=== PATIENT | female | born 1975 | race Caucasian/White ===

== ENCOUNTER 2016-12-31 08:12 | Emergency (ER) | payer OTHER ==
[~2016-12-31] VITALS: Ht 167.6 cm; Wt 92.3 kg
[~2016-12-31 08:12] MED LIST: AMOXICILLIN 8751 TAB PO; PRINZIDE 12.5 M1 TAB PO
[2016-12-31 08:13] VITALS: TEMP 97.7
[2016-12-31] MEDS ORDERED: PREDNISONE20 MG PO (08:45)
[2016-12-31 09:45] VITALS: BP 145/96; PULSE 93
== END 2016-12-31 09:46 | disposition home or self-care (01) ==
LOC: COL.ER 08:12
DX: L23.6 Allergic contact dermatitis due to food in contact with the skin (principal); I10 Essential (primary) hypertension
CPT/HCPCS: J7512

== ENCOUNTER 2017-01-02 13:45 | Emergency (ER) | payer OTHER ==
[~2017-01-02] VITALS: Ht 167.6 cm; Wt 92.7 kg
[~2017-01-02 13:45] MED LIST changes: +PREDNISONE20 MG PO
[2017-01-02 13:55] VITALS: TEMP 98.8
[2017-01-02 15:46] LABS: PH 5 (5-8); URINE APPEARANCE Cloudy; URINE BACTERIA Many /hpf; URINE BILIRUBIN Negative (NEGATIVE); URINE BLOOD Negative (NEGATIVE); URINE COLOR Yellow; URINE GLUCOSE Negative (NEGATIVE); URINE KETONE Negative (NEGATIVE); URINE UROBILINOGEN Negative (NEGATIVE)
[2017-01-02] MEDS ORDERED: EPIPEN 2-PAK1 MG/ML IM (16:14)
[2017-01-02] MEDS ORDERED: PREDNISONE10 MG PO (16:14)
[2017-01-02 16:26] VITALS: BP 128/86; PULSE 77
[2017-01-02] MEDS ORDERED: CEPHALEXIN500 M1 PO (16:26)
== END 2017-01-02 16:31 | disposition home or self-care (01) ==
LOC: COL.ER 13:45
PROVIDERS: Emergency Medicine
DX: T78.3XXA Angioneurotic edema, initial encounter (principal); T78.40XA Allergy, unspecified, initial encounter
CPT/HCPCS: J1200; J2930; J7030

== ENCOUNTER 2023-05-31 09:15 | Inpatient (IN) | payer OTHER ==
[~2023-05-31] VITALS: Ht 165.1 cm; Wt 97.4 kg
[2023-05-31] VITALS (7 sets, daily range): BP systolic 106–136; BP diastolic 57–78; PULSE 51–60; TEMP 97.4–98.2
[~2023-05-31 09:15] MED LIST changes: +CEPHALEXIN500 M1 PO; +EPIPEN 2-PAK1 MG/ML IM; +PREDNISONE10 MG PO
[2023-05-31] MEDS ORDERED: Iohexol 300 - 100 ML VIAL IV ONE (09:46)
[2023-05-31] MEDS ORDERED: NS 100 ML IV SCH (09:47)
[2023-05-31 09:48] LABS: BASO # 0.1 K/mm3 (0.0-0.2); BASO % 0.5 % (0.0-2.0); EOS # 0.2 K/mm3 (0.0-0.7); EOS % 1.8 % (0.0-4.0); GRAN # 7.6 K/mm3 (1.4-6.5); GRAN % 65.5 % (42.2-75.2); HEMOGLOBIN 14.2 g/dl (12.5-16.0); LYMPH # 2.9 K/mm3 (1.2-3.4); LYMPH % 24.9 % (20.0-51.0); MEAN CELL VOLUME 92 fl (80.0-100.0); MEAN CORPUSCULAR HEMOGLOBIN 30 pg (27-31); MEAN CORPUSCULAR HGB CONC 33 g/dl (33.0-37.0); MONO # 0.8 K/mm3 (0.1-0.6); MONO % 6.9 % (1.7-9.3); PLATELET COUNT 230 K/mm3 (130-400); REDCELL DISTRIBUTION WIDTH-CV 13.8 % (11.5-14.5)
[2023-05-31 09:57] LABS: ALANINE AMINOTRANSFERASE 15 U/L (0-55); ALBUMIN 3.5 gm/dL (3.5-5.0); ALKALINE PHOSPHATASE 54 U/L (40-150); ANION GAP 9 mmol/L (7-16); AST,SGOT 14 U/L (5-34); BILIRUBIN,TOTAL 0.3 mg/dL (0.2-1.2); BLOOD UREA NITROGEN 8 mg/dL (7-19); CALCIUM 9.1 mg/dL (8.4-10.2); CARBON DIOXIDE 21 mmol/L (22-29); CHLORIDE 110 mmol/L (98-107); CREATININE, serum 0.87 mg/dL (0.57-1.11); GLUCOSE 95 mg/dL (70-99); SODIUM 140 mmol/L (136-145)
[2023-05-31 10:17] LABS: TROPONIN-I < 0.010 ng/mL (0.00-0.033)
[2023-05-31 10:37] LABS: COLLECTION METHOD CLEAN CATCH
[2023-05-31] MEDS ORDERED: diphenhydrAMINE 50 MG/ML 1 ML VIAL IV ONE (11:15)
[2023-05-31 11:24] LABS: PH 5.5 (5.0-8.5); URINE APPEARANCE Hazy (CLEAR/HAZY); URINE BACTERIA Moderate /hpf (NONE SEEN); URINE BLOOD Negative (NEGATIVE); URINE COLOR Yellow (YELLOW); URINE GLUCOSE Negative (NEGATIVE); URINE KETONE Negative (NEGATIVE); URINE NITRATE Negative (NEGATIVE); URINE PROTEIN(semi-quant) Negative (NEGATIVE); URINE RBC 0-2 /hpf (0-2); URINE UROBILINOGEN 0.2 E.U/dL (0.2-1.0)
--- NOTE | 2023-05-31 14:05 | NUR ---
PATIENT ARRIVED TO FLOOR AT APPROX 1405. PATIENT IS TEARFUL, BUT PLEASANT. PATIENT IS ALERT AND ORIENTED.
--- NOTE | 2023-05-31 14:40 | NUR ---
PATIENT ORIENTED TO ROOM BY THIS NURSE. ADMISSION ASSESSMENT AND INTAKE COMPLETE. NO SKIN ABNORMALITIES. VSS. PATIENT IS ALERT, ORIENTED, BUT VERY ANXIOUS. DR KRISHNA DID SPEAK WITH PATIENT TO GO OVER EKG. PATIENT IN UNDERSTANDING. WILL CONT TO MONITOR FOR CHANGES.
[2023-05-31] MEDS ORDERED: Acetaminophen 325 MG TAB PO PRN (16:00)
[2023-05-31] MEDS ORDERED: NS 1,000 ML IV SCH (17:00)
[2023-05-31] MEDS ORDERED: Ondansetron 4 MG/2 ML VIAL IV PRN (17:00)
[2023-05-31 17:51] LABS: PARTIAL THROMBOPLASTIN TIME 28.6 SECONDS (26.0-37.0)
[2023-05-31 17:59] LABS: CHOLESTEROL RISK RATIO 4.2
--- NOTE | 2023-05-31 18:10 | NUR ---
PATIENT SITTING UP EATING DINNER. TELEMETRY ON. SCDS IN PLACE. NS RUNNING @75 ML/HR. PATIENT DENIES ANY NEEDS OR CONCERNS AT THIS TIME.
--- NOTE | 2023-05-31 20:45 | NUR ---
PT IS A&O X4 LAYING IN BED. VSS ON ROOM AIR. PT IS DENYING ANY CHEST PAIN, SOB, N/V. NEURO CHECK WNL. NS @ 75 INFUSING TO LEFT FOREARM. PT REQUESTING SCDS BE TAKEN OFF AT THIS TIME. EDUCATED ON NPO AT MIDNIGHT & PT VOICES UNDERSTANDING. DENYING FURTHER NEEDS. CALL LIGHTS IN REACH.
[2023-05-31] MEDS ORDERED: Melatonin 3 MG TAB PO SCH (21:00)
--- NOTE | 2023-05-31 23:33 | NUR ---
PT A&O RESTING IN BED. NEURO CHECK WNL. PT REPORTS FEELING "A LITTLE WEAKER ON THE LEFT SIDE". ABLE TO LIFT & HOLD BLE & BUE. HAND GRASP EQUAL. DENIES PROBLEMS SWALLOWING & PAIN. CALL LIGHT IN REACH & DENYING FURTHER NEEDS.
[2023-06-01] VITALS (15 sets, daily range): BP systolic 135–194; BP diastolic 71–107; PULSE 50–64; TEMP 97–98.5
--- NOTE | 2023-06-01 02:38 | NUR ---
pt resting in bed with even & unlabored resp. call light in reach
--- NOTE | 2023-06-01 08:00 | NUR ---
Patient is resting in bed, getting fluids per orders, states she can feel her left side (arm and leg) is cold, but she can not feel touch. Alert and oriented, denies any pain, facial movement normal. Assessment completed, no further needs at this time. ECHO to be done right now.
--- NOTE | 2023-06-01 08:45 | NUR ---
Pt is taken for an MRI, possible [place] and loop recorder placement.
[2023-06-01] MEDS ORDERED: Lidocaine PF 2% (20 MG/ML) 5 ML VIAL ONE (08:51)
[2023-06-01 08:59] LABS: BASO % 0.4 % (0.0-2.0); EOS # 0.1 K/mm3 (0.0-0.7); EOS % 1.4 % (0.0-4.0); GRAN # 6.1 K/mm3 (1.4-6.5); GRAN % 64.4 % (42.2-75.2); HEMOGLOBIN 12.9 g/dl (12.5-16.0); LYMPH # 2.7 K/mm3 (1.2-3.4); LYMPH % 28.3 % (20.0-51.0); MEAN CELL VOLUME 91 fl (80.0-100.0); MEAN CORPUSCULAR HEMOGLOBIN 30 pg (27-31); MEAN CORPUSCULAR HGB CONC 33 g/dl (33.0-37.0); MEAN PLATELET VOLUME 12.3 fl (7.4-10.4); MONO # 0.5 K/mm3 (0.1-0.6); MONO % 5.1 % (1.7-9.3); PLATELET COUNT 184 K/mm3 (130-400); RED BLOOD COUNT 4.31 M/mm3 (4.10-5.30); REDCELL DISTRIBUTION WIDTH-CV 13.8 % (11.5-14.5)
[2023-06-01 09:11] LABS: CREATININE, serum 0.81 mg/dL (0.57-1.11); POTASSIUM 3.8 mmol/L (3.5-4.5)
--- NOTE | 2023-06-01 09:18 | NUR ---
Initial visit attempt; Patient out for tests, family of four present in her room. Life Skills Worker introduced herself and let them know of her availability to their mom and to them. Life Skills Worker will follow-up when patient/mom is present. Life Skills Worker told family it was a blessings to see so much support for their mom and for Dad's .
[2023-06-01] MEDS ORDERED: IBU800 M1 PO (09:20)
[2023-06-01] MEDS ORDERED: TYLENOL 500MG500 MG PO (09:21)
--- NOTE | 2023-06-01 11:00 | NUR ---
1100: At the conclusion of the procedure those present were Adonis,CHRISTINE, Rosibel,RT and myself - pt was having a productive cough requiring light oral suctioning. Prior to suctioning pt's mouth was assessed and a partial implant was loose in the pt's mouth - pt was able to push the implant out to her lips and the implant was grasped and placed in a denture cup. Further assessment of the oral cavity revealed no additional foreign objects - the implant was intact with no fractures. When pt was awake, alert and oriented pt stated that she takes out her implant at night when she sleeps, and she agreed the partial implant was intact and looked normal. MD Giana was notified at 1102 - no orders recieved.
--- NOTE | 2023-06-01 11:30 | NUR ---
Pt back to room 305 - recieved by DIPTI Sood - vital signs initiated and results reviewed together with RN. Pt's vitals reviewed together - hypertension noted (and reviewed her pre-procedure/baseline vitals). Pt's family at bedside - all questions answered - pt denies needs at this time - call light in reach.
--- NOTE | 2023-06-01 11:33 | NUR ---
Patient arrived from [place], alert and oriented x4, asking for her family, all of them now in room. Hypertensive 188/105.
--- NOTE | 2023-06-01 14:35 | NUR ---
Patient reports headache, tylenol provided.
--- NOTE | 2023-06-01 15:58 | NUR ---
Social Work Professor met with patient to discuss discharge planning. Patient lives in [place], [place] with her , German (ph#[phone]) [address] Flannery for primary care. [facility] and does not use any DME. 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 Patient believes she has DPOA-HC completed designating German. SW discussed PT recommendation for IPR and patient is agreeable to have referral sent, but also wants some time to consider this. Discharge Plan: IRP Screen
[2023-06-01] MEDS ORDERED: Clopidogrel 75 MG TAB PO SCH (17:08)
--- NOTE | 2023-06-01 20:00 | NUR ---
UPON SHIFT ASSESSMENT, GUS WAS UP IN BED AND SEEMED A BIT ANXIOUS. SHE IS AXO X 4 AND NEUROS ARE WNL AND COGNITION IS GOOD. NO DYSPHAGIA, FACIAL DROOPING, DRIFT OR PARALYSIS NOTED. GUS DOES COMPLAIN OF LT SIDED NUMBNESS ON LATERAL PORTION OF HAND AND CALF. GAIT EXHIBITED RT SIDED WEAKNESS-NOT LT. PATIENT STATED CONCERNS AND FEARS OF NEW DIAGNOSIS. WENT OVER INTERVENTIONS AND TREATMENT PLAN WITH PATIENT AND SHE VOICED UNDERSTANDING. VS ARE WNL AND TELE IS NS. BED ALARM ON AND CALL LIGHT WITHIN REACH.
[2023-06-01] MEDS ORDERED: Cephalexin 500 MG CAP PO SCH (21:00)
[2023-06-01] MEDS ORDERED: Atorvastatin 40 MG TAB PO SCH (21:00)
[2023-06-02] VITALS (11 sets, daily range): BP systolic 146–193; BP diastolic 73–106; PULSE 52–57; TEMP 97.6–98.6
--- NOTE | 2023-06-02 07:26 | NUR ---
throughout the night, Zandra's neuro checks remained WNL and stroke scale at 1. VS WNL AND TELE NS BRADYCARDIA. CALL LIGHT WITHIN REACH.
[2023-06-02 07:43] LABS: BASO % 0.5 % (0.0-2.0); EOS # 0.1 K/mm3 (0.0-0.7); EOS % 1.7 % (0.0-4.0); GRAN # 5.8 K/mm3 (1.4-6.5); GRAN % 68.9 % (42.2-75.2); HEMATOCRIT 40.1 % (37.0-47.0); HEMOGLOBIN 13.8 g/dl (12.5-16.0); LYMPH % 23.4 % (20.0-51.0); MEAN CELL VOLUME 89 fl (80.0-100.0); MEAN CORPUSCULAR HEMOGLOBIN 31 pg (27-31); MEAN CORPUSCULAR HGB CONC 34 g/dl (33.0-37.0); MEAN PLATELET VOLUME 12.4 fl (7.4-10.4); MONO # 0.4 K/mm3 (0.1-0.6); MONO % 4.9 % (1.7-9.3); PLATELET COUNT 191 K/mm3 (130-400); RED BLOOD COUNT 4.49 M/mm3 (4.10-5.30); REDCELL DISTRIBUTION WIDTH-CV 13.6 % (11.5-14.5)
[2023-06-02 07:55] LABS: CALCIUM 8.5 mg/dL (8.4-10.2); CREATININE, serum 0.79 mg/dL (0.57-1.11); MAGNESIUM 1.8 mg/dL (1.6-2.6); POTASSIUM 4.1 mmol/L (3.5-4.5)
--- NOTE | 2023-06-02 08:00 | NUR ---
PATIENT RESTING IN BED. ALERT AND ORIENTED. SHIFT ASSESSMENT COMPLETE. TELE ON. REFUSED SCDS. PATIENT STATED SHE IS STILL FEELING NUMB AND WEAK. PATIENT DENIES PAIN. WILL CONT TO MONITOR.
[2023-06-02] MEDS ORDERED: ZESTRIL 20MG TA20 MG PO (08:50)
[2023-06-02] MEDS ORDERED: PLAVIX 75MG TAB75 MG PO (08:50)
[2023-06-02] MEDS ORDERED: ASPIRIN E.C. 8181 MG PO (08:50)
[2023-06-02] MEDS ORDERED: LIPITOR 40MG TA40 MG PO (08:50)
[2023-06-02] MEDS ORDERED: Lisinopril 20 MG TAB PO SCH (09:00)
[2023-06-02] MEDS ORDERED: CEPHALEXIN500 M1 PO (10:18)
--- NOTE | 2023-06-02 13:11 | NUR ---
PATIENT SITTING UP IN BED EATING LUNCH WITH FAMILY AT BEDSIDE. PATIENT IS ALERT AND ORIENTED. PATIENT DENIES PAIN OR DISCOMFORT AT THIS TIME. LOOP RECORDER INCISION SITE IS CDI COVERED WITH GAUZE AND TAPE. WILL CONT TO MONITOR.
--- NOTE | 2023-06-02 13:15 | NUR ---
conduit worker was notified that patient expressed to Dr. Kahn that she was wanting to return home instead of IPR. SW was notified by IPR Director, Yulissa, that patient was still interested in IPR but wanted to discuss with her as he was uncertain at this time. Yulissa expressed she was going to run her insurance and see if they would be able to receive authorization. SW was notified by Yulissa, IPR director, that patient does not have IPR benefits with her insurance so they were recommending outpatient PT. RODRIGUEZ met with patient to discuss options for outpatient PT. Patient would like to go to the [facility] location on [facility]. SW faxed referral to the outpatient clinic. Discharge plan: Home with outpatient PT
--- NOTE | 2023-06-02 16:31 | NUR ---
PATIENT RESTING IN BED. ALERT AND ORIENTED. PATIENT DENIES PAIN AT THIS TIME, BUT STATES SHE FEELS RESTLESS. PATIENT STATES HER LEGS FEEL "WEIRD AND JUMPY." WILL CONT TO MONITOR.
--- NOTE | 2023-06-02 20:00 | NUR ---
UPON SHIFT ASSESSMENT, GUS WAS UP IN BED ON HER PHONE. SHE IS AXO X 4 AND NEURO CHECKS ARE WNL. SLIGHT RT SIDED FACIAL DROOP WAS NOTED, GAG REFLEX AND SWALLOWING WAS INTACT. CT HEAD SCAN ADDRESSING THIS DURING DAY WAS NEGATIVE. NO DYSPHAGIA NOTED. CALL LIGHT WITHIN REACH.
--- NOTE | 2023-06-02 21:00 | NUR ---
RECHECK BP 133/78, NO LONGER HYPERTENSIVE.
[2023-06-03 01:00] VITALS: BP_SYST 181
[2023-06-03 01:05] VITALS: BP 181/93; PULSE 57; TEMP 98.7
[2023-06-03 04:49] VITALS: BP 148/66; PULSE 48; TEMP 985
[2023-06-03 05:00] VITALS: BP_SYST 148
[2023-06-03 08:12] VITALS: BP 181/107; PULSE 59; TEMP 97.6
--- NOTE | 2023-06-03 08:30 | NUR ---
PATIENT RESTING IN BED. LAB STAFF IN ROOM DRAWING BLOOD. PATIENT APPEARS TEARFUL. PATIENT STATES, "I'M JUST READY TO GET OUT OF HERE." THIS NURSE REASSURED PATIENT. THIS NURSE CALCULATED 0 ON STROKE SCALE. HAND TAPPER OPERATOR EQUAL. PATIENT STATES THE LEFT LOWER EXTREM CONTINUES TO FEEL NUMB/TINGLY. PATIENT STATES SHE HAS NOT HAD ISSUES SWALLOWING OR TALKING. PATIENT DENIES ISSUES WALKING, BUT STATES SHE'S BEEN TAKING IT SLOW. NEURO ASSESSMENT COMPLETE. INCISION SITE TO LEFT CHEST IS COVERED WITH GAUZE AND TAPE. CDI. PATIENT DENIES PAIN OR DISCOMFORT AT THIS TIME. WILL CONT TO MONITOR FOR CHANGES. CALL LIGHT WITHIN REACH.
[2023-06-03] MEDS ORDERED: NORVASC 5MG5 MG/TAB PO (08:50)
[2023-06-03 09:00] VITALS: BP_SYST 181
[2023-06-03] MEDS ORDERED: amLODIPine 5 MG TAB PO SCH (09:00)
[2023-06-03 09:05] LABS: BASO % 0.4 % (0.0-2.0); EOS # 0.2 K/mm3 (0.0-0.7); EOS % 1.6 % (0.0-4.0); GRAN # 6.6 K/mm3 (1.4-6.5); GRAN % 70.9 % (42.2-75.2); HEMATOCRIT 43.4 % (37.0-47.0); HEMOGLOBIN 14.6 g/dl (12.5-16.0); LYMPH # 2.2 K/mm3 (1.2-3.4); LYMPH % 23.2 % (20.0-51.0); MEAN CELL VOLUME 89 fl (80.0-100.0); MEAN CORPUSCULAR HEMOGLOBIN 30 pg (27-31); MEAN CORPUSCULAR HGB CONC 34 g/dl (33.0-37.0); MEAN PLATELET VOLUME 12.8 fl (7.4-10.4); MONO # 0.3 K/mm3 (0.1-0.6); MONO % 3.6 % (1.7-9.3); PLATELET COUNT 196 K/mm3 (130-400); RED BLOOD COUNT 4.87 M/mm3 (4.10-5.30); REDCELL DISTRIBUTION WIDTH-CV 13.6 % (11.5-14.5)
[2023-06-03 09:22] LABS: CREATININE, serum 0.85 mg/dL (0.57-1.11); MAGNESIUM 1.7 mg/dL (1.6-2.6); POTASSIUM 3.7 mmol/L (3.5-4.5)
--- NOTE | 2023-06-03 09:49 | NUR ---
Initial visit; Patient thanked Quality Control Assessor for looking in on her and offering God's blessings. Patient appeared to not want visitors or to talk.
--- NOTE | 2023-06-03 10:00 | NUR ---
THIS NURSE GAVE PATIENT DISCHARGE INSTRUCTIONS. ALL QUESTIONS ANSWERED. PATIENT DENIES NEEDS OR CONCERNS AT THIS TIME.
--- NOTE | 2023-06-03 12:18 | NUR ---
PATIENT ESCORTED OFF UNIT AT 1212. ALL BELONGINGS WITH PATIENT.
--- NOTE | 2023-06-03 15:57 | NUR ---
social group worker emailed walker order to home medical. SW notified unit operator and nurse. Discharge plan: Home with outpatient PT
== END 2023-06-03 12:12 | disposition home or self-care (01) | DRG 42 ==
LOC: COL.ER 09:15 → MEDICAL 13:34
PROVIDERS: Emergency Medicine; Nurse Practitioner Family; Physician Assistant; ADMIT Hospitalist
PROC: 0JH632Z Insertion of Monitoring Device into Chest Subcutaneous Tissue and Fascia, Percutaneous Approach (ICD-10-PCS; principal; 2023-05-31)
DX: I67.82 Cerebral ischemia (principal); I10 Essential (primary) hypertension; D72.829 Elevated white blood cell count, unspecified; R82.81 Pyuria; E04.1 Nontoxic single thyroid nodule
CPT/HCPCS: C1764; J1200; J2704; J7030; Q3014; Q9967

== ENCOUNTER 2023-06-16 08:30 | Outpatient (RCR) | payer OTHER ==
[2006-01-03 09:30] VITALS: TEMP 98.4
[~2023-06-16 08:30] MED LIST changes: +ASPIRIN E.C. 8181 MG PO; +IBU800 M1 PO; +LIPITOR 40MG TA40 MG PO; +NORVASC 5MG5 MG/TAB PO; +PLAVIX 75MG TAB75 MG PO; +TYLENOL 500MG500 MG PO; +ZESTRIL 20MG TA20 MG PO
== END 2023-06-22 | disposition home or self-care (01) ==
LOC: WSOT
DX: I63.89 Other cerebral infarction (principal); R20.0 Anesthesia of skin

== ENCOUNTER 2023-07-05 08:00 | Outpatient (RCR) | payer OTHER ==
[2006-01-03 09:30] VITALS: TEMP 98.4
== END 2023-07-05 10:00 | disposition home or self-care (01) ==
LOC: WSOT 08:00
DX: I69.351 Hemiplegia and hemiparesis following cerebral infarction affecting right dominant side (principal)

== ENCOUNTER → 2023-07-14 | Outpatient (CLI) | payer OTHER | LOC: COL.RAD 13:40 | DX: E04.1 Nontoxic single thyroid nodule (principal) ==